=== PATIENT | male | born 1970 | race Two or more races ===

== ENCOUNTER 2017-06-21 14:29 | Inpatient (IN) | payer OTHER ==
[2017-06-21 14:57] VITALS: BMI 19.9
[2017-06-21] MEDS ORDERED: P-EPHED 60MG/TRIPROLIDI 2.5MG TABLET PO PRN (15:48)
[2017-06-21] MEDS ORDERED: LOPERAMIDE HCL 2 MG CAPSULE PO PRN (15:48)
[2017-06-21] MEDS ORDERED: MAG HYDROX/AL HYDROX/SIMETH 30 ML UNIT-DOSE CUP PO PRN (15:48)
[2017-06-21] MEDS ORDERED: chlordiazePOXIDE HCL 25 MG CAPSULE PO PRN (15:48)
[2017-06-21] MEDS ORDERED: ACETAMINOPHEN 325 MG TABLET (FP) PO PRN (15:48)
[2017-06-21] MEDS ORDERED: MAGNESIUM CITRATE 300 ML BOTTLE PO PRN (15:48)
[2017-06-21] MEDS ORDERED: hydrOXYzine PAMOATE 50 MG CAPSULE (FP) PO PRN (15:48)
[2017-06-21] MEDS ORDERED: guaiFENesin/D-METHORPHAN HB 10 ML UNIT-DOSE CUPS PO PRN (15:48)
[2017-06-21] MEDS ORDERED: chlordiazePOXIDE HCL 25 MG CAPSULE PO ONE (15:48)
[2017-06-21] MEDS ORDERED: NICOTINE POLACRILEX 2 MG GUM BC PRN (15:48)
[2017-06-21] MEDS ORDERED: MAGNESIUM HYDROX 2400MG/30ML ORAL SUSPENSION 30 ML CUP PO PRN (15:48)
[2017-06-21] MEDS ORDERED: IBUPROFEN 400 MG TABLET (FP) PO PRN (15:48)
[2017-06-21] MEDS ORDERED: MENTHOL/PHENOL 1 EACH UD MM PRN (15:48)
--- NOTE | 2017-06-21 15:57 | HP ---
CIWA Score - CIWA Score Nausea/Vomitin-Mild Nausea/No Vomiting Muscle Tremors: 3 Anxiety: 4-Mod. Anxious/Guarded Agitation: 4-Moderately Restless Paroxysmal Sweats: 3 Orientation: 0-Oriented Tacttile Disturbances: 1-Very Mild Itch/Numbness Auditory Disturbances: 0-None Visual Disturbances: 0-None Headache: 0-None Present CIWA-Ar Total Score: 16 Admission ROS BHS - HPI Chief Complaint: Withdrawal sx. Allergies/Adverse Reactions: Allergies Allergy/AdvReac Type Severity Reaction Status Date / Time No Known Allergies Allergy Verified 06/21/17 15:47 History of Present Illness: 46 y/o man with a long hx. of alcoholism is admitted for detox. Pt. was here in October 2016, denies significant sobriety. Exam Limitations: No Limitations - Ebola screening Have you traveled outside of the country in the last 21 days: No Have you had contact with anyone from an Ebola affected area: No Have you been sick,other than usual withdrawal symptoms: No Do you have a fever: No - Review of Systems Constitutional: Diaphoresis EENT: reports: No Symptoms Reported Respiratory: reports: No Symptoms reported Cardiac: reports: No Symptoms Reported GI: reports: Nausea, Abdominal cramping : reports: No Symptoms Reported Musculoskeletal: reports: Back Pain Integumentary: reports: Sweating Neuro: reports: Tingling, Tremors, Other (Dysarthria) Endocrine: reports: No Symptoms Reported Hematology: reports: No Symptoms Reported Psychiatric: reports: No Sypmtoms Reported Other Systems: Reviewed and Negative Patient History - Patient Medical History Hx Anemia: No Hx Asthma: No Hx Chronic Obstructive Pulmonary Disease (COPD): No Hx Cancer: No Hx Cardiac Disorders: No Hx Congestive Heart Failure: No Hx Hypertension: No Hx Hypercholesterolemia: No Hx Pacemaker: No HX Cerebrovascular Accident: No Hx Seizures: No Hx Dementia: No Hx Diabetes: No Hx Gastrointestinal Disorders: No Hx Genitourinary Disorders: No Hx Sexually Transmitted Disorders: No Hx Renal Disease (ESRD): No Hx Thyroid Disease: No Hx Human Immunodeficiency Virus (HIV): No Hx Hepatitis C: No Hx Depression: Yes Hx Suicide Attempt: No Hx Bipolar Disorder: No Hx Schizophrenia: Yes - Patient Surgical History Past Surgical History: No Hx Neurologic Surgery: No Hx Cataract Extraction: No Hx Cardiac Surgery: No Hx Lung Surgery: No Hx Breast Surgery: No Hx Breast Biopsy: No Hx Abdominal Surgery: No Hx Appendectomy: No Hx Cholecystectomy: No Hx Genitourinary Surgery: No Hx Orthopedic Surgery: No Anesthesia Reaction: No - PPD History Previous Implant?: Yes Documented Results: Negative w/proof Implanted On Prior [facility] Admission?: Yes Date: 10/22/16 Results: 0 mm PPD to be Administered?: No - Smoking Cessation Smoking history: Current every day smoker Have you smoked in the past 12 months: Yes Aproximately how many cigarettes per day: 20 Cigars Per Day: 0 Hx Chewing Tobacco Use: No Initiated information on smoking cessation: Yes 'Breaking Loose' booklet given: 06/21/17 - Substance & Tx. History Hx Alcohol Use: Yes Hx Substance Use: Yes Substance Use Type: Alcohol, Cocaine Hx Substance Use Treatment: Yes (Detox at [facility] in 10/2016) - Substances Abused Alcohol Route: Oral Frequency: Daily Amount used: beer(6- 24 oz bottles) or 2(6packs) Age of first use: 20 Date of Last Use: 06/18/17 Crack Route: Smoking Frequency: Daily Amount used: $150 Age of first use: 16 Date of Last Use: 06/20/17 Family Disease History - Family Disease History Family Disease History: Other: Father (.), Mother (.), Brother ( Psychiatric issues.) Admission Physical Exam [facility] - Vital Signs Vital Signs: Vital Signs - 24 hr 06/21/17 14:55 Temperature 97.9 F Pulse Rate 83 Respiratory 18 Rate Blood Pressure 138/75 - Physical General Appearance: Yes: Tremorous, Irritable, Sweating, Anxious HEENTM: Yes: Within Normal Limits Respiratory: Yes: Chest Non-Tender, Lungs Clear, Normal Breath Sounds Neck: Yes: Supple Breast: Yes: Breast Exam Deferred Cardiology: Yes: Regular Rhythm, Regular Rate, S1, S2 Abdominal: Yes: Normal Bowel Sounds, Non Tender, Flat, Soft Genitourinary: Yes: Within Normal Limits Back: Yes: Within Normal Limits Musculoskeletal: Yes: Within Normal Limits Extremities: Yes: Tremors Neurological: Yes: Fully Oriented, Alert, Facial Droop (left facial palsy), Other (Dysarthria) Integumentary: Yes: Diaphoresis Lymphatic: Yes: Within Normal Limits - Diagnostic (1) Cocaine dependence, uncomplicated Current Visit: Yes Status: Acute (2) Alcohol dependence with uncomplicated withdrawal Current Visit: Yes Status: Chronic (3) Facial paralysis on left side Current Visit: Yes Status: Chronic (4) Nicotine dependence Current Visit: Yes Status: Chronic Qualifiers: Nicotine product type: cigarettes Substance use status: uncomplicated Qualified Code(s): F17.210 - Nicotine dependence, cigarettes, uncomplicated (5) Sedative, hypnotic or anxiolytic dependence with withdrawal, uncomplicated Current Visit: Yes Status: Chronic Cleared for Admission [facility] - Detox or Rehab [facility] Level of Care: Medically Managed Detox Regimen/Protocol: Librium [facility] Breath Alcohol Content Breath Alcohol Content: 0 Urine Drug Screen - Results Drug Screen Negative: No Urine Drug Screen Results: NINA-Cocaine
[2017-06-21] MEDS: chlordiazePOXIDE HCL 25 MG CAPSULE PO SCH ×2 (18:10→22:27)
[2017-06-21] MEDS: NICOTINE 21 MG/24 HOURS TOPICAL PATCH TD SCH (18:12)
[2017-06-21] MEDS: THIAMINE HCL 100 MG TABLET (FP) PO SCH (22:27)
[2017-06-22 00:11] LABS: URINE APPEARANCE SLCLOUDY; URINE BILIRUBIN NEGATIVE (NEGATIVE); URINE BLOOD NEGATIVE (NEGATIVE); URINE COLOR LTYELLOW; URINE GLUCOSE (UA) NEGATIVE (NEGATIVE); URINE KETONE NEGATIVE (NEGATIVE); URINE LEUK ESTERASE NEGATIVE (NEGATIVE); URINE NITRITE NEGATIVE (NEGATIVE); URINE PROTEIN NEGATIVE (NEGATIVE); URINE UROBILINOGEN NEGATIVE mg/dL (0.2-1.0)
[2017-06-22] MEDS: chlordiazePOXIDE HCL 25 MG CAPSULE PO SCH ×4 (05:25→22:27)
--- NOTE | 2017-06-22 09:03 | EKG ---
Test Reason : Blood Pressure : / mmHG Vent. Rate : 062 BPM Atrial Rate : 062 BPM P-R Int : 110 ms QRS Dur : 090 ms QT Int : 410 ms P-R-T Axes : 072 078 059 degrees QTc Int : 416 ms SINUS RHYTHM WITH SHORT SD OTHERWISE NORMAL ECG WHEN COMPARED WITH ECG OF 20-OCT-2016 14:47, NO SIGNIFICANT CHANGE WAS FOUND Confirmed by BUSTER YUAN MD ([id number]) on 06/22/2017 9:02:56 AM Referred By: Confirmed By:BUSTER YUAN MD
--- NOTE | 2017-06-22 09:09 | CONSULT ---
[facility] Psychiatric Consult - Data Date of interview: 06/22/17 Admission source: [facility] Identifying data: Mr Anderson is a 46 years old single male, father of 3 children, unemployedon SSI, living in a room Substance Abuse History: Reports history of alcohol and cocaine use. Refer to addiction counselor's note for further information Medical History: Unremarkable except for facial paralysis on left side. Smokes cigarettes 1ppd Psychiatric History: Reports that he was diagnosed with Schizophrenia and depression in 2003. Reports multiple previous admissions to several institutions including [facility], hospital in [place] and most recently a few months ago to [facility]. Reports receiving OPD care at a clinic in the [place] and he is prescribed Xanax 1 mg o BID, Depakote 500 mg po BID, Doxepin 50 mg po HS, Risperdal 2 mg po BID and Ambien 10 mg po HS. 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 Denies history of suicidal attempt. At [facility], reports feeling depressed and anxious and sleeping poorly Physical/Sexual Abuse/Trauma History: Denies history of verbal, physical or sexual abuse as well as DV relationship Additional Comment: Reports history of multiple previous misdemeanor arrests. Denies being on probation currently Mental Status Exam - Mental Status Exam Alert and Oriented to: Time, Place, Person Cognitive Function: Fair Patient Appearance: Well Groomed Mood: Depressed, Anxious Affect: Appropriate Patient Behavior: Cooperative Speech Pattern: Clear (speech difficulty due to facial paralysis on left side) Voice Loudness: Normal Thought Process: Intact, Goal Oriented Hallucinations: Denies Suicidal Ideation: Denies Homicidal Ideation: Denies Insight/Judgement: Fair Sleep: Poorly Appetite: Good Muscle strength/Tone: Normal Gait/Station: Normal Psychiatric Findings - Problem List ([place] 1, 2,3) (1) Schizoaffective disorder Current Visit: Yes Status: Chronic (2) Substance induced mood disorder Current Visit: Yes Status: Acute (3) Substance-induced sleep disorder Current Visit: Yes Status: Acute (4) Alcohol dependence with uncomplicated withdrawal Current Visit: Yes Status: Acute (5) Cocaine dependence, uncomplicated Current Visit: Yes Status: Acute (6) Nicotine dependence Current Visit: Yes Status: Chronic Qualifiers: Nicotine product type: cigarettes Substance use status: uncomplicated Qualified Code(s): F17.210 - Nicotine dependence, cigarettes, uncomplicated (7) Facial paralysis on left side Current Visit: Yes Status: Chronic - Initial Treatment Plan Initial Treatment Plan: 1) Resume Depakote 500 mg po BID, Risperdal 2 mg po BID , Doxepin 50 mg po HS and Ambien 10 mg po HS prn for insomnia. 2) Continue inpatient detoxification
[2017-06-22 10:06] LABS: ALBUMIN 3.5 g/dl (3.4-5.0); ANION GAP 5 (8-16); CALCIUM 8.4 mg/dL (8.5-10.1); CO2 30 mmol/L (21-32); CREATININE 0.9 mg/dL (0.7-1.3); GLUCOSE,RANDOM 73 mg/dL (74-106); SGOT/AST 12 U/L (15-37); SGPT/ALT 22 U/L (12-78)
[2017-06-22 10:07] LABS: ALK PHOS 66 U/L (45-117); BILIRUBIN,TOTAL 0.3 mg/dL (0.2-1.0); TOT PROT 5.9 g/dl (6.4-8.2)
[2017-06-22 10:21] LABS: MCH 30.1 pg (25.7-33.7); MCHC 32.9 g/dl (32.0-35.9); MEAN CELL VOLUME 91.5 fl (80-96); MEAN PLT VOLUME 7.9 fl (7.5-11.1); PLATELET COUNT 303 K/MM3 (134-434); RDW 14.5 % (11.9-15.9)
[2017-06-22] MEDS: PRENATAL VITAMINS W/ FOLIC ACID TABLET (FP) PO SCH (10:47)
[2017-06-22] MEDS: NICOTINE 21 MG/24 HOURS TOPICAL PATCH TD SCH (10:48)
[2017-06-22] MEDS: risperiDONE 2 MG TABLET PO SCH ×2 (10:50→22:27)
[2017-06-22] MEDS: DIVALPROEX SODIUM 500 MG TABLET E.C. PO SCH ×2 (10:50→22:27)
[2017-06-22 11:18] LABS: HIV 1 & 2 AB NEGATIVE; HIV 1 AGp24 NEGATIVE
[2017-06-22 13:29] LABS: URINE LEUK ESTERASE NEGATIVE (NEGATIVE)
--- NOTE | 2017-06-22 13:46 | PN ---
S CIWA - CIWA Score Nausea/Vomitin-Int. Nausea w/Dry Heave Muscle Tremors: 3 Anxiety: 4-Mod. Anxious/Guarded Agitation: 4-Moderately Restless Paroxysmal Sweats: 3 Orientation: 0-Oriented Tacttile Disturbances: 1-Very Mild Itch/Numbness Auditory Disturbances: 0-None Visual Disturbances: 0-None Headache: 3-Moderate CIWA-Ar Total Score: 22 BHS Progress Note (SOAP) Subjective: Nausea, sweating, interrupted sleep, headache Objective: 06/22/17 13:44 Last Vital Signs Temp Pulse Resp BP Pulse Ox 97.8 F 80 18 120/76 06/22/17 10:37 06/22/17 10:37 06/22/17 10:37 06/22/17 10:37 Laboratory Tests 06/21/17 06/22/17 06/22/17 14:30 08:00 08:00 WBC 5.0 RBC 4.47 Hgb 13.4 Hct 40.9 MCV 91.5 MCH 30.1 MCHC 32.9 RDW 14.5 Plt Count 303 MPV 7.9 Sodium 141 Potassium 4.7 Chloride 106 Carbon Dioxide 30 Anion Gap 5 L BUN 13 D Creatinine 0.9 Creat Clearance w eGFR > 60 Random Glucose 73 L Calcium 8.4 L Total Bilirubin 0.3 AST 12 L D ALT 22 Alkaline Phosphatase 66 Total Protein 5.9 L Albumin 3.5 Urine Color Ltyellow Urine Appearance Slcloudy Urine pH 8.0 D Ur Specific [place] 1.011 Urine Protein Negative Urine Glucose (UA) Negative Urine Ketones Negative Urine Blood Negative Urine Nitrite Negative Urine Bilirubin Negative Urine Urobilinogen Negative Ur Leukocyte Esterase Negative RPR Titer HIV 1&2 Antibody Screen HIV P24 Antigen 06/22/17 06/22/17 08:00 08:00 WBC RBC Hgb Hct MCV MCH MCHC RDW Plt Count MPV Sodium Potassium Chloride Carbon Dioxide Anion Gap BUN Creatinine Creat Clearance w eGFR Random Glucose Calcium Total Bilirubin AST ALT Alkaline Phosphatase Total Protein Albumin Urine Color Urine Appearance Urine pH Ur Specific [place] Urine Protein Urine Glucose (UA) Urine Ketones Urine Blood Urine Nitrite Urine Bilirubin Urine Urobilinogen Ur Leukocyte Esterase RPR Titer Nonreactive HIV 1&2 Antibody Screen Negative HIV P24 Antigen Negative Labs noted Assessment: 06/22/17 13:45 Withdrawal symptoms Plan: Continue detox
[2017-06-22] MEDS: DOXEPIN HCL 50 MG CAPSULE PO SCH (22:27)
[2017-06-22] MEDS: THIAMINE HCL 100 MG TABLET (FP) PO SCH (22:27)
[2017-06-23] MEDS: chlordiazePOXIDE HCL 25 MG CAPSULE PO SCH ×2 (05:22→10:23)
[2017-06-23] MEDS: NICOTINE 21 MG/24 HOURS TOPICAL PATCH TD SCH (10:22)
[2017-06-23] MEDS: PRENATAL VITAMINS W/ FOLIC ACID TABLET (FP) PO SCH (10:22)
[2017-06-23] MEDS: DIVALPROEX SODIUM 500 MG TABLET E.C. PO SCH ×2 (10:22→22:26)
[2017-06-23] MEDS: risperiDONE 2 MG TABLET PO SCH ×2 (10:22→22:26)
--- NOTE | 2017-06-23 12:22 | PN ---
S CIWA - CIWA Score Nausea/Vomitin Muscle Tremors: 3 Anxiety: 4-Mod. Anxious/Guarded Agitation: 2 Paroxysmal Sweats: No Perspiration Orientation: 2-Disoriented Date<2 days Tacttile Disturbances: 0-None Auditory Disturbances: 0-None Visual Disturbances: 0-None Headache: 4-Moderately Severe CIWA-Ar Total Score: 18 BHS Progress Note (SOAP) Subjective: Nausea, Fatigue, H/A, Sweating, Tremors. Objective: PT. A & O X 2 (UNCERTAIN ABOUT DAY / DATE). NO ACUTE DISTRESS. 06/23/17 12:20 Vital Signs Temperature 95.9 F L 06/23/17 09:23 Pulse Rate 108 H 06/23/17 09:23 Respiratory Rate 18 06/23/17 09:23 Blood Pressure 120/81 06/23/17 09:23 O2 Sat by Pulse Oximetry (%) Laboratory Tests 06/21/17 06/22/17 06/22/17 14:30 08:00 08:00 WBC 5.0 RBC 4.47 Hgb 13.4 Hct 40.9 MCV 91.5 MCH 30.1 MCHC 32.9 RDW 14.5 Plt Count 303 MPV 7.9 Sodium 141 Potassium 4.7 Chloride 106 Carbon Dioxide 30 Anion Gap 5 L BUN 13 D Creatinine 0.9 Creat Clearance w eGFR > 60 Random Glucose 73 L Calcium 8.4 L Total Bilirubin 0.3 AST 12 L D ALT 22 Alkaline Phosphatase 66 Total Protein 5.9 L Albumin 3.5 Urine Color Ltyellow Urine Appearance Slcloudy Urine pH 8.0 D Ur Specific [place] 1.011 Urine Protein Negative Urine Glucose (UA) Negative Urine Ketones Negative Urine Blood Negative Urine Nitrite Negative Urine Bilirubin Negative Urine Urobilinogen Negative Ur Leukocyte Esterase Negative RPR Titer HIV 1&2 Antibody Screen HIV P24 Antigen 06/22/17 06/22/17 08:00 08:00 WBC RBC Hgb Hct MCV MCH MCHC RDW Plt Count MPV Sodium Potassium Chloride Carbon Dioxide Anion Gap BUN Creatinine Creat Clearance w eGFR Random Glucose Calcium Total Bilirubin AST ALT Alkaline Phosphatase Total Protein Albumin Urine Color Urine Appearance Urine pH Ur Specific [place] Urine Protein Urine Glucose (UA) Urine Ketones Urine Blood Urine Nitrite Urine Bilirubin Urine Urobilinogen Ur Leukocyte Esterase RPR Titer Nonreactive HIV 1&2 Antibody Screen Negative HIV P24 Antigen Negative LABS NOTED. Assessment: 06/23/17 12:21 WITHDRAWAL SYMPTOMS. Plan: CONTINUE DETOX.
[2017-06-23] MEDS: chlordiazePOXIDE 5 MG CAPSULE PO SCH ×2 (17:31→22:26)
[2017-06-23] MEDS: DOXEPIN HCL 50 MG CAPSULE PO SCH (22:26)
[2017-06-23] MEDS: THIAMINE HCL 100 MG TABLET (FP) PO SCH (22:26)
[2017-06-23] MEDS: ZOLPIDEM TARTRATE 5 MG TABLET PO PRN (22:27)
[2017-06-24] MEDS: chlordiazePOXIDE 5 MG CAPSULE PO SCH ×2 (05:28→10:22)
--- NOTE | 2017-06-24 09:21 | PN ---
BHS Progress Note (SOAP) Subjective: headache sweating tremor Objective: 06/24/17 09:20 Vital Signs Temperature 96.2 F L 06/24/17 09:15 Pulse Rate 146 H 06/24/17 09:15 Respiratory Rate 18 06/24/17 09:15 Blood Pressure 110/74 06/24/17 09:15 O2 Sat by Pulse Oximetry (%) Laboratory Last Values WBC 5.0 K/mm3 (4.0-10.0) 06/22/17 08:00 RBC 4.47 M/mm3 (4.00-5.60) 06/22/17 08:00 Hgb 13.4 GM/dL (11.7-16.9) 06/22/17 08:00 Hct 40.9 % (35.4-49) 06/22/17 08:00 MCV 91.5 fl (80-96) 06/22/17 08:00 MCH 30.1 pg (25.7-33.7) 06/22/17 08:00 MCHC 32.9 g/dl (32.0-35.9) 06/22/17 08:00 RDW 14.5 % (11.9-15.9) 06/22/17 08:00 Plt Count 303 K/MM3 (134-434) 06/22/17 08:00 MPV 7.9 fl (7.5-11.1) 06/22/17 08:00 Sodium 141 mmol/L (136-145) 06/22/17 08:00 Potassium 4.7 mmol/L (3.5-5.1) 06/22/17 08:00 Chloride 106 mmol/L (98-107) 06/22/17 08:00 Carbon Dioxide 30 mmol/L (21-32) 06/22/17 08:00 Anion Gap 5 (8-16) L 06/22/17 08:00 BUN 13 mg/dL (7-18) D 06/22/17 08:00 Creatinine 0.9 mg/dL (0.7-1.3) 06/22/17 08:00 Creat Clearance w eGFR > 60 (>60) 06/22/17 08:00 Random Glucose 73 mg/dL (74-106) L 06/22/17 08:00 Calcium 8.4 mg/dL (8.5-10.1) L 06/22/17 08:00 Total Bilirubin 0.3 mg/dL (0.2-1.0) 06/22/17 08:00 AST 12 U/L (15-37) L D 06/22/17 08:00 ALT 22 U/L (12-78) 06/22/17 08:00 Alkaline Phosphatase 66 U/L (45-117) 06/22/17 08:00 Total Protein 5.9 g/dl (6.4-8.2) L 06/22/17 08:00 Albumin 3.5 g/dl (3.4-5.0) 06/22/17 08:00 Urine Color Ltyellow 06/21/17 14:30 Urine Appearance Slcloudy 06/21/17 14:30 Urine pH 8.0 (5.0-8.0) D 06/21/17 14:30 Ur Specific [place] 1.011 (1.001-1.035) 06/21/17 14:30 Urine Protein Negative (NEGATIVE) 06/21/17 14:30 Urine Glucose (UA) Negative (NEGATIVE) 06/21/17 14:30 Urine Ketones Negative (NEGATIVE) 06/21/17 14:30 Urine Blood Negative (NEGATIVE) 06/21/17 14:30 Urine Nitrite Negative (NEGATIVE) 06/21/17 14:30 Urine Bilirubin Negative (NEGATIVE) 06/21/17 14:30 Urine Urobilinogen Negative mg/dL (0.2-1.0) 06/21/17 14:30 Ur Leukocyte Esterase Negative (NEGATIVE) 06/21/17 14:30 RPR Titer Nonreactive (NONREACTIVE) 06/22/17 08:00 HIV 1&2 Antibody Screen Negative 06/22/17 08:00 HIV P24 Antigen Negative 06/22/17 08:00 lab noted Assessment: 06/24/17 09:20 mild withdrawal sx Plan: observation with detox regimen
[2017-06-24] MEDS: DIVALPROEX SODIUM 500 MG TABLET E.C. PO SCH ×2 (10:21→22:26)
[2017-06-24] MEDS: risperiDONE 2 MG TABLET PO SCH ×2 (10:21→22:26)
[2017-06-24] MEDS: PRENATAL VITAMINS W/ FOLIC ACID TABLET (FP) PO SCH (10:22)
[2017-06-24] MEDS: NICOTINE 21 MG/24 HOURS TOPICAL PATCH TD SCH (10:22)
[2017-06-24] MEDS: chlordiazePOXIDE HCL 10 MG CAPSULE PO SCH ×2 (17:43→22:26)
[2017-06-24] MEDS: THIAMINE HCL 100 MG TABLET (FP) PO SCH (22:26)
[2017-06-24] MEDS: DOXEPIN HCL 50 MG CAPSULE PO SCH (22:26)
[2017-06-24] MEDS: ZOLPIDEM TARTRATE 5 MG TABLET PO PRN (22:26)
[2017-06-25] MEDS: chlordiazePOXIDE HCL 10 MG CAPSULE PO SCH ×2 (06:06→10:53)
[2017-06-25 09:53] VITALS: BP 113/74; PULSE 109; TEMP 97.1
[2017-06-25] MEDS: NICOTINE 21 MG/24 HOURS TOPICAL PATCH TD SCH (10:53)
[2017-06-25] MEDS: PRENATAL VITAMINS W/ FOLIC ACID TABLET (FP) PO SCH (10:53)
[2017-06-25] MEDS: risperiDONE 2 MG TABLET PO SCH (10:53)
[2017-06-25] MEDS: DIVALPROEX SODIUM 500 MG TABLET E.C. PO SCH (10:53)
--- NOTE | 2017-06-25 11:38 | DS ---
[facility] Detox Discharge Summary Admission Date: 06/21/17 Discharge Date: 06/25/17 - History Present History: Alcohol Dependence Pertinent Past History: S/P LEFT EYE INJURY S/P FACIAL PARALYSIS LEFT SIDE - Physical Exam Results Vital Signs: Vital Signs Temperature 97.1 F L 06/25/17 09:52 Pulse Rate 109 H 06/25/17 09:52 Respiratory Rate 16 06/25/17 09:52 Blood Pressure 113/74 06/25/17 09:52 O2 Sat by Pulse Oximetry (%) Pertinent Admission Physical Exam Findings: WITHDRAWAL SX Laboratory Last Values WBC 5.0 K/mm3 (4.0-10.0) 06/22/17 08:00 RBC 4.47 M/mm3 (4.00-5.60) 06/22/17 08:00 Hgb 13.4 GM/dL (11.7-16.9) 06/22/17 08:00 Hct 40.9 % (35.4-49) 06/22/17 08:00 MCV 91.5 fl (80-96) 06/22/17 08:00 MCH 30.1 pg (25.7-33.7) 06/22/17 08:00 MCHC 32.9 g/dl (32.0-35.9) 06/22/17 08:00 RDW 14.5 % (11.9-15.9) 06/22/17 08:00 Plt Count 303 K/MM3 (134-434) 06/22/17 08:00 MPV 7.9 fl (7.5-11.1) 06/22/17 08:00 Sodium 141 mmol/L (136-145) 06/22/17 08:00 Potassium 4.7 mmol/L (3.5-5.1) 06/22/17 08:00 Chloride 106 mmol/L (98-107) 06/22/17 08:00 Carbon Dioxide 30 mmol/L (21-32) 06/22/17 08:00 Anion Gap 5 (8-16) L 06/22/17 08:00 BUN 13 mg/dL (7-18) D 06/22/17 08:00 Creatinine 0.9 mg/dL (0.7-1.3) 06/22/17 08:00 Creat Clearance w eGFR > 60 (>60) 06/22/17 08:00 Random Glucose 73 mg/dL (74-106) L 06/22/17 08:00 Calcium 8.4 mg/dL (8.5-10.1) L 06/22/17 08:00 Total Bilirubin 0.3 mg/dL (0.2-1.0) 06/22/17 08:00 AST 12 U/L (15-37) L D 06/22/17 08:00 ALT 22 U/L (12-78) 06/22/17 08:00 Alkaline Phosphatase 66 U/L (45-117) 06/22/17 08:00 Total Protein 5.9 g/dl (6.4-8.2) L 06/22/17 08:00 Albumin 3.5 g/dl (3.4-5.0) 06/22/17 08:00 Urine Color Ltyellow 06/21/17 14:30 Urine Appearance Slcloudy 06/21/17 14:30 Urine pH 8.0 (5.0-8.0) D 06/21/17 14:30 Ur Specific [place] 1.011 (1.001-1.035) 06/21/17 14:30 Urine Protein Negative (NEGATIVE) 06/21/17 14:30 Urine Glucose (UA) Negative (NEGATIVE) 06/21/17 14:30 Urine Ketones Negative (NEGATIVE) 06/21/17 14:30 Urine Blood Negative (NEGATIVE) 06/21/17 14:30 Urine Nitrite Negative (NEGATIVE) 06/21/17 14:30 Urine Bilirubin Negative (NEGATIVE) 06/21/17 14:30 Urine Urobilinogen Negative mg/dL (0.2-1.0) 06/21/17 14:30 Ur Leukocyte Esterase Negative (NEGATIVE) 06/21/17 14:30 RPR Titer Nonreactive (NONREACTIVE) 06/22/17 08:00 HIV 1&2 Antibody Screen Negative 06/22/17 08:00 HIV P24 Antigen Negative 06/22/17 08:00 - Treatment Hospital Course: Detox Protocol Followed, Detoxed Safely, Responded well, Discharged Condition Good, Rehab Referral Accepted Patient has Accepted a Rehab Referral to: [facility] - Medication Discharge Medications: Ambulatory Orders Doxepin HCl 50 mg PO HS 10/20/16 Gabapentin 400 mg PO DAILY 10/20/16 Alprazolam [Xanax] 1 mg PO Q12H 06/21/17 Zolpidem Tartrate [Ambien] 10 mg PO HS 06/21/17 Divalproex [Depakote -] 500 mg PO BID #60 tablet.ec 06/22/17 Doxepin HCl [[place] -] 50 mg PO HS #30 capsule 06/22/17 Risperidone [Risperdal] 2 mg PO BID #60 tablet 06/22/17 - Diagnosis (1) Alcohol dependence with uncomplicated withdrawal Current Visit: Yes Status: Acute (2) Cocaine dependence, uncomplicated Current Visit: Yes Status: Acute (3) Nicotine dependence Current Visit: Yes Status: Acute Qualifiers: Nicotine product type: cigarettes Substance use status: in withdrawal Qualified Code(s): F17.213 - Nicotine dependence, cigarettes, with withdrawal (4) Facial paralysis on left side Current Visit: Yes Status: Chronic - AMA Did Patient Leave Against Medical Advice: No
== END 2017-06-25 13:45 | disposition other institution (70) | DRG 774 ==
LOC: YASAS 14:29 → Y3N 17:25
PROVIDERS: ADMIT Internal Medicine; ATTEND Internal Medicine
PROC: HZ2ZZZZ Detoxification Services for Substance Abuse Treatment (ICD-10-PCS; principal; 2017-06-21)
DX: F13.230 Sedative, hypnotic or anxiolytic dependence with withdrawal, uncomplicated (principal); F10.230 Alcohol dependence with withdrawal, uncomplicated; F14.20 Cocaine dependence, uncomplicated; F17.213 Nicotine dependence, cigarettes, with withdrawal; F19.24 Other psychoactive substance dependence with psychoactive substance-induced mood disorder; F19.282 Other psychoactive substance dependence with psychoactive substance-induced sleep disorder; F25.9 Schizoaffective disorder, unspecified; G51.0 Bell's palsy
CPT/HCPCS: 36415; 80053; 81003; 85027; 86593; 87389; 93005; 93010

== ENCOUNTER 2017-06-25 13:56 | Inpatient (IN) | payer OTHER ==
[2017-06-25] MEDS ORDERED: MAG HYDROX/AL HYDROX/SIMETH 30 ML UNIT-DOSE CUP PO PRN (16:28)
[2017-06-25] MEDS ORDERED: NICOTINE 14 MG/24 HOURS TOPICAL PATCH TD PRN (16:28)
[2017-06-25] MEDS ORDERED: MAGNESIUM HYDROX 2400MG/30ML ORAL SUSPENSION 30 ML CUP PO PRN (16:28)
[2017-06-25] MEDS ORDERED: P-EPHED 60MG/TRIPROLIDI 2.5MG TABLET PO PRN (16:28)
[2017-06-25] MEDS ORDERED: NICOTINE POLACRILEX 4 MG GUM BUC PRN (16:28)
[2017-06-25] MEDS ORDERED: guaiFENesin/D-METHORPHAN HB 10 ML UNIT-DOSE CUPS PO PRN (16:28)
[2017-06-25] MEDS ORDERED: MENTHOL/PHENOL 1 EACH UD MM PRN (16:28)
[2017-06-25] MEDS ORDERED: LOPERAMIDE HCL 2 MG CAPSULE PO PRN (16:28)
[2017-06-25] MEDS ORDERED: MAGNESIUM CITRATE 300 ML BOTTLE PO PRN (16:28)
[2017-06-25] MEDS ORDERED: IBUPROFEN 400 MG TABLET (FP) PO PRN (16:28)
--- NOTE | 2017-06-25 16:28 | HP ---
[facility] Rehab Assess/Revision - Admission History Admitted to Rehab from: [facility] Date of Admission to Rehab: 06/25/17 - Vital signs Vital Signs: Vital Signs Period Temp Pulse Resp BP Sys/Sosa Pulse Ox Last 24 Hr 98.2 F 110 18 124/75 - Findings Detox History & Physical reviewed: Yes Concur with findings: Yes Comments/Additional Findings: transferred from detox to rehab admission as per protocol Inpatient Rehab Admission - Initial Determination Are CD services needed?: Yes Free of communicable disease: Yes Not in need of hospitalization: Yes - Rehab Admission Criteria Previous failed treatment: Yes Poor recovery environment: Yes Comorbidities: Yes Lacks judgement: No Patient is meeting Inpatient Rehab admission criteria:: Yes
[2017-06-25] MEDS: THIAMINE HCL 100 MG TABLET (FP) PO SCH (21:14)
[2017-06-25] MEDS: DIVALPROEX SODIUM 500 MG TABLET E.C. PO SCH (21:14)
[2017-06-25] MEDS: risperiDONE 2 MG TABLET PO SCH (21:14)
[2017-06-25] MEDS: DOXEPIN HCL 50 MG CAPSULE PO SCH (22:30)
[2017-06-26] MEDS: risperiDONE 2 MG TABLET PO SCH ×2 (09:49→21:24)
[2017-06-26] MEDS: PRENATAL VITAMINS W/ FOLIC ACID TABLET (FP) PO SCH (09:49)
[2017-06-26] MEDS: DIVALPROEX SODIUM 500 MG TABLET E.C. PO SCH ×2 (09:49→21:24)
--- NOTE | 2017-06-26 11:25 | HP ---
Psychiatrist Admission - Data Date of interview: 06/26/17 Admission source: [facility]N Identifying data: [facility] for this 46 years old single male, father of 3 children, unemployed supported on SSI, living in a room. Medical History: Facial paralisis, smokes cigerettes 1PPD. Psychiatric History: Patient reports first psychiatric contact in 2003, he had a auditory and visual hallucinations and suicidal thoughts, reports voices were telling him to hurt slef was admitted to the hospital in [facility], he reports several 10 or 15 psychiatric hospitalizations including [facility], [facility] with most recent a month ago at [facility] for 2 weeks due to auditory hallucinations and pills overdose hallucinations. He following up at the [place] [facility] and was precsribed Depakote 500 mg po bid, Resperdal 2 mg po bid, Doxepin 50 mg po hs, Xanax 1 mg po bid, seen by Dr.Camille lagos in detox and continued medications. States was diagnosed with Schizophrenia, deepression and anxiety, reports he feels very anxious without his xanax. Physical/Sexual Abuse/Trauma History: He denies history of sexual, physical and verbal abuse. Vital Signs: Vital Signs - 24 hr 06/25/17 06/26/17 06/26/17 14:44 01:17 03:30 Temperature 98.2 F Pulse Rate 110 H Respiratory 18 16 16 Rate Blood Pressure 124/75 06/26/17 06:40 Temperature 97.0 F L Pulse Rate 90 Respiratory 16 Rate Blood Pressure 117/75 Allergies/Adverse Reactions: Allergies Allergy/AdvReac Type Severity Reaction Status Date / Time No Known Allergies Allergy Verified 06/25/17 15:03 Date of last physical exam: 06/21/17 Concur with the findings of this exam: Yes - Substance Abuse/Tx History Hx Alcohol Use: Yes (24oz beer 6 cans adily) Hx Substance Use: Yes Substance Use Type: Cocaine ($150 daily.), Tranquilizers (xanax prescribed ) Hx Substance Use Treatment: Yes ([facility]) Mental Status Exam - Mental Status Exam Alert and Oriented to: Time, Place, Person Cognitive Function: Good Patient Appearance: Well Groomed Mood: Hopeful Affect: Appropriate Patient Behavior: Appropriate, Cooperative Speech Pattern: Clear, Appropriate Voice Loudness: Normal Thought Process: Goal Oriented Thought Disorder: Not Present, Paranoid Ideation (on and of paranoid thoughts), Ideas of Reference (sometimes states he gets messages from TV, thinks people talking about him) Hallucinations: Denies, Auditory (heard voices last week,) Suicidal Ideation: Denies Homicidal Ideation: Denies Insight/Judgement: Fair Sleep: Fair Appetite: Fair Muscle strength/Tone: Normal Gait/Station: Normal Psychiatric Findings - Problem List ([place] 1, 2,3) (1) Sedative hypnotic or anxiolytic dependence Current Visit: Yes Status: Acute (2) Alcohol dependence Current Visit: Yes Status: Acute (3) Cocaine dependence Current Visit: Yes Status: Acute (4) Nicotine dependence Current Visit: No Status: Acute Qualifiers: Nicotine product type: cigarettes Substance use status: in withdrawal Qualified Code(s): F17.213 - Nicotine dependence, cigarettes, with withdrawal (5) Facial paralysis on left side Current Visit: No Status: Chronic (6) Schizoaffective disorder Current Visit: No Status: Chronic - Initial Treatment Plan Initial Treatment Plan: discussed indications and properties of Buspar and med. was recommended for anxiety, patient agreed to start, will add Buspar and continue his current medications, monitor progress as needed.
[2017-06-26] MEDS: busPIRone HCL 5 MG TABLET PO SCH ×2 (13:29→21:24)
[2017-06-26] MEDS: THIAMINE HCL 100 MG TABLET (FP) PO SCH (21:24)
[2017-06-26] MEDS: DOXEPIN HCL 50 MG CAPSULE PO SCH (21:24)
[2017-06-27] MEDS: busPIRone HCL 5 MG TABLET PO SCH ×3 (06:39→21:25)
[2017-06-27] MEDS: PRENATAL VITAMINS W/ FOLIC ACID TABLET (FP) PO SCH (09:35)
[2017-06-27] MEDS: risperiDONE 2 MG TABLET PO SCH ×2 (09:35→21:25)
[2017-06-27] MEDS: DIVALPROEX SODIUM 500 MG TABLET E.C. PO SCH ×2 (09:35→21:25)
[2017-06-27] MEDS: DOXEPIN HCL 50 MG CAPSULE PO SCH (21:25)
[2017-06-27] MEDS: THIAMINE HCL 100 MG TABLET (FP) PO SCH (21:25)
[2017-06-28] MEDS: busPIRone HCL 5 MG TABLET PO SCH ×3 (06:13→21:11)
[2017-06-28] MEDS: PRENATAL VITAMINS W/ FOLIC ACID TABLET (FP) PO SCH (09:32)
[2017-06-28] MEDS: DIVALPROEX SODIUM 500 MG TABLET E.C. PO SCH ×2 (09:32→21:11)
[2017-06-28] MEDS: risperiDONE 2 MG TABLET PO SCH ×2 (09:32→21:11)
[2017-06-28] MEDS: THIAMINE HCL 100 MG TABLET (FP) PO SCH (21:11)
[2017-06-28] MEDS: DOXEPIN HCL 50 MG CAPSULE PO SCH (21:11)
[2017-06-29] MEDS: busPIRone HCL 5 MG TABLET PO SCH ×3 (06:20→21:10)
[2017-06-29] MEDS: DIVALPROEX SODIUM 500 MG TABLET E.C. PO SCH ×2 (09:38→21:09)
[2017-06-29] MEDS: PRENATAL VITAMINS W/ FOLIC ACID TABLET (FP) PO SCH (09:38)
[2017-06-29] MEDS: risperiDONE 2 MG TABLET PO SCH ×2 (09:39→21:09)
[2017-06-29] MEDS: THIAMINE HCL 100 MG TABLET (FP) PO SCH (21:09)
[2017-06-29] MEDS: DOXEPIN HCL 50 MG CAPSULE PO SCH (21:09)
[2017-06-30] MEDS: busPIRone HCL 5 MG TABLET PO SCH ×3 (06:11→21:11)
[2017-06-30] MEDS: PRENATAL VITAMINS W/ FOLIC ACID TABLET (FP) PO SCH (10:07)
[2017-06-30] MEDS: DIVALPROEX SODIUM 500 MG TABLET E.C. PO SCH ×2 (10:07→21:11)
[2017-06-30] MEDS: risperiDONE 2 MG TABLET PO SCH ×2 (10:07→21:11)
[2017-06-30] MEDS: THIAMINE HCL 100 MG TABLET (FP) PO SCH (21:11)
[2017-06-30] MEDS: DOXEPIN HCL 50 MG CAPSULE PO SCH (21:11)
[2017-06-30] MEDS: ACETAMINOPHEN 325 MG TABLET (FP) PO PRN (21:12)
[2017-07-01] MEDS: busPIRone HCL 5 MG TABLET PO SCH ×3 (06:23→21:02)
[2017-07-01] MEDS: PRENATAL VITAMINS W/ FOLIC ACID TABLET (FP) PO SCH (09:35)
[2017-07-01] MEDS: risperiDONE 2 MG TABLET PO SCH ×2 (09:36→21:02)
[2017-07-01] MEDS: DIVALPROEX SODIUM 500 MG TABLET E.C. PO SCH ×2 (09:36→21:02)
[2017-07-01] MEDS: DOXEPIN HCL 50 MG CAPSULE PO SCH (21:02)
[2017-07-01] MEDS: THIAMINE HCL 100 MG TABLET (FP) PO SCH (21:02)
[2017-07-02] MEDS: busPIRone HCL 5 MG TABLET PO SCH ×3 (06:22→21:08)
[2017-07-02] MEDS: risperiDONE 2 MG TABLET PO SCH ×2 (10:00→21:08)
[2017-07-02] MEDS: DIVALPROEX SODIUM 500 MG TABLET E.C. PO SCH ×2 (10:00→21:09)
[2017-07-02] MEDS: PRENATAL VITAMINS W/ FOLIC ACID TABLET (FP) PO SCH (10:00)
[2017-07-02] MEDS: DOXEPIN HCL 50 MG CAPSULE PO SCH (21:08)
[2017-07-02] MEDS: THIAMINE HCL 100 MG TABLET (FP) PO SCH (21:08)
[2017-07-02] MEDS: ACETAMINOPHEN 325 MG TABLET (FP) PO PRN (21:09)
[2017-07-03] MEDS: busPIRone HCL 5 MG TABLET PO SCH ×3 (06:23→21:30)
[2017-07-03] MEDS: risperiDONE 2 MG TABLET PO SCH ×2 (09:45→21:30)
[2017-07-03] MEDS: PRENATAL VITAMINS W/ FOLIC ACID TABLET (FP) PO SCH (09:45)
[2017-07-03] MEDS: DIVALPROEX SODIUM 500 MG TABLET E.C. PO SCH ×2 (09:45→21:30)
[2017-07-03] MEDS: THIAMINE HCL 100 MG TABLET (FP) PO SCH (21:30)
[2017-07-03] MEDS: DOXEPIN HCL 50 MG CAPSULE PO SCH (21:30)
[2017-07-04] MEDS: busPIRone HCL 5 MG TABLET PO SCH ×3 (06:13→21:13)
[2017-07-04] MEDS: risperiDONE 2 MG TABLET PO SCH ×2 (09:50→21:13)
[2017-07-04] MEDS: PRENATAL VITAMINS W/ FOLIC ACID TABLET (FP) PO SCH (09:50)
[2017-07-04] MEDS: DIVALPROEX SODIUM 500 MG TABLET E.C. PO SCH ×2 (09:50→21:14)
[2017-07-04] MEDS ORDERED: AMITRIPTYLINE HCL 25 MG TABLET (FP) PO PRN (16:58)
[2017-07-04] MEDS: hydrOXYzine PAMOATE 50 MG CAPSULE (FP) PO PRN (17:56)
[2017-07-04] MEDS: DOXEPIN HCL 50 MG CAPSULE PO SCH (21:13)
[2017-07-04] MEDS: THIAMINE HCL 100 MG TABLET (FP) PO SCH (21:13)
[2017-07-05] MEDS: busPIRone HCL 5 MG TABLET PO SCH ×3 (06:29→21:07)
[2017-07-05] MEDS: DIVALPROEX SODIUM 500 MG TABLET E.C. PO SCH ×2 (09:59→21:07)
[2017-07-05] MEDS: risperiDONE 2 MG TABLET PO SCH ×2 (10:00→21:07)
[2017-07-05] MEDS: PRENATAL VITAMINS W/ FOLIC ACID TABLET (FP) PO SCH (10:00)
[2017-07-05] MEDS: hydrOXYzine PAMOATE 50 MG CAPSULE (FP) PO PRN ×2 (14:43→21:07)
[2017-07-05] MEDS: THIAMINE HCL 100 MG TABLET (FP) PO SCH (21:07)
[2017-07-05] MEDS: DOXEPIN HCL 50 MG CAPSULE PO SCH (21:07)
[2017-07-06] MEDS: busPIRone HCL 5 MG TABLET PO SCH ×3 (06:50→21:06)
[2017-07-06] MEDS: risperiDONE 2 MG TABLET PO SCH ×2 (09:26→21:06)
[2017-07-06] MEDS: DIVALPROEX SODIUM 500 MG TABLET E.C. PO SCH ×2 (09:26→21:06)
[2017-07-06] MEDS: PRENATAL VITAMINS W/ FOLIC ACID TABLET (FP) PO SCH (09:26)
[2017-07-06] MEDS: hydrOXYzine PAMOATE 50 MG CAPSULE (FP) PO PRN ×2 (14:19→21:07)
[2017-07-06] MEDS: DOXEPIN HCL 50 MG CAPSULE PO SCH (21:06)
[2017-07-06] MEDS: THIAMINE HCL 100 MG TABLET (FP) PO SCH (21:06)
[2017-07-07] MEDS: busPIRone HCL 5 MG TABLET PO SCH ×3 (06:59→21:10)
[2017-07-07] MEDS: PRENATAL VITAMINS W/ FOLIC ACID TABLET (FP) PO SCH (10:04)
[2017-07-07] MEDS: DIVALPROEX SODIUM 500 MG TABLET E.C. PO SCH ×2 (10:04→21:10)
[2017-07-07] MEDS: risperiDONE 2 MG TABLET PO SCH ×2 (10:04→21:10)
[2017-07-07] MEDS: hydrOXYzine PAMOATE 50 MG CAPSULE (FP) PO PRN ×2 (14:06→21:11)
[2017-07-07] MEDS: DOXEPIN HCL 50 MG CAPSULE PO SCH (21:10)
[2017-07-07] MEDS: THIAMINE HCL 100 MG TABLET (FP) PO SCH (21:10)
[2017-07-08] MEDS: busPIRone HCL 5 MG TABLET PO SCH (06:21)
[2017-07-08 06:36] VITALS: BP 113/80; PULSE 86; TEMP 98
[2017-07-08] MEDS: DIVALPROEX SODIUM 500 MG TABLET E.C. PO SCH (09:53)
[2017-07-08] MEDS: risperiDONE 2 MG TABLET PO SCH (09:53)
[2017-07-08] MEDS: PRENATAL VITAMINS W/ FOLIC ACID TABLET (FP) PO SCH (09:53)
--- NOTE | 2017-07-08 10:17 | PN ---
Psychiatric Progress Note Vital Signs: Vital Signs Period Temp Pulse Resp BP Sys/Sosa Pulse Ox Last 24 Hr 98.0 F 86 16-18 113/80 Date of Session: 07/08/17 Chief Complaint:: discharge visit HPI: Patient addressed alcohol, cocaine, sedative hypnotic dependence comorbid Schizoaffective disorder. Current Medications: Active Medications Generic Name Dose Route Start Last Admin Trade Name Freq PRN Reason Stop Dose Admin Acetaminophen 650 mg 06/25/17 16:28 07/02/17 21:09 Tylenol - PO 650 mg Q4H PRN Administration FEVER OR PAIN Al Hydroxide/Mg Hydroxide 30 ml 06/25/17 16:28 Mylanta Oral Suspension - PO Q6H PRN DYSPEPSIA Amitriptyline HCl 25 mg 07/04/17 16:58 Elavil - PO TID PRN ANXIETY Buspirone HCl 5 mg 06/26/17 14:00 07/08/17 06:21 Buspar - PO 5 mg TID ANGIE Administration Divalproex Sodium 500 mg 06/25/17 22:00 07/08/17 09:53 Depakote - PO 500 mg BID ANGIE Administration Doxepin HCl 50 mg 06/25/17 22:00 07/07/17 21:10 Sinequan - PO 50 mg HS ANGIE Administration Eucalyptus/Menthol/Phenol/Sorbitol 1 each 06/25/17 16:28 Cepastat Lozenge - MM Q4H PRN SORE THROAT Guaifenesin 10 ml 06/25/17 16:28 Robitussin Dm - PO Q6H PRN COUGH Hydroxyzine Pamoate 50 mg 07/04/17 16:58 07/07/17 21:11 Vistaril - PO 50 mg Q4H PRN Administration ANXIETY Ibuprofen 400 mg 06/25/17 16:28 07/03/17 21:31 Motrin - PO 400 mg Q6H PRN Administration PAIN Loperamide HCl 4 mg 06/25/17 16:28 Imodium - PO Q6H PRN DIARRHEA Magnesium Citrate 300 ml 06/25/17 16:28 Citroma - PO Q48H PRN CONSTIPATION Magnesium Hydroxide 30 ml 06/25/17 16:28 Milk Of Magnesia - PO DAILY PRN CONSTIPATION Nicotine 14 mg 06/25/17 16:28 Nicoderm Patch - TD DAILY PRN WITHDRAWAL(CONT SUBST) Nicotine Polacrilex 4 mg 06/25/17 16:28 Nicorette Gum - BUC Q2H PRN NICOTINE REPLACEMENT RX Multivit/Folic Acid/Iron 1 tab 06/26/17 10:00 07/08/17 09:53 Vitamins ([facility]) - PO 1 tab DAILY ANGIE Administration Pseudoephedrine/Triprolidine 1 combo 06/25/17 16:28 Actifed - PO TID PRN NASAL CONGESTION Risperidone 2 mg 06/25/17 22:00 07/08/17 09:53 Risperdal - PO 2 mg BID ANGIE Administration Thiamine HCl 100 mg 06/25/17 22:00 07/07/17 21:10 Vitamin B1 - PO 100 mg HS ANGIE Administration Current Side Effect: No Lab tests ordered: No Lab tests reviewed: Yes Provider note:: Patient has completed today his treatment and met his goals, will continue to address his issues at [facility] outpatient treatment program. Patient understands the negaive consequences of his addiction and motivated to continue maintain abstinence. Patient was encouraged to utilize all supports available to prevent relapses. Medications Depakote, Doxepin, Buspar and Risperdal well tolerated, scripts provided. Patient is stable for discharge today. Total face to face time:: 25 Mental Status Exam - Mental Status Exam Alert and Oriented to: Time, Place, Person Cognitive Function: Good Patient Appearance: Well Groomed Mood: Hopeful Affect: Appropriate, Mood Congruent Patient Behavior: Appropriate, Cooperative Speech Pattern: Clear, Appropriate Voice Loudness: Normal Thought Process: Intact Thought Disorder: Not Present Hallucinations: Denies Suicidal Ideation: Denies Homicidal Ideation: Denies Insight/Judgement: Fair Sleep: Fair Appetite: Fair Muscle strength/Tone: Normal Gait/Station: Normal Psychiatric Treatment Plan - Problem List (1) Sedative hypnotic or anxiolytic dependence Current Visit: Yes (2) Alcohol dependence Current Visit: Yes (3) Cocaine dependence Current Visit: Yes (4) Nicotine dependence Current Visit: No Qualifiers: Nicotine product type: cigarettes Substance use status: in withdrawal Qualified Code(s): F17.213 - Nicotine dependence, cigarettes, with withdrawal (5) Facial paralysis on left side Current Visit: No (6) Schizoaffective disorder Current Visit: No
== END 2017-07-08 10:40 | disposition home or self-care (01) | DRG 772 ==
LOC: YASAS 13:56 → Y5N 13:58
PROVIDERS: ADMIT Psychiatry & Neurology Psychiatry; ATTEND Psychiatry & Neurology Psychiatry
PROC: HZ42ZZZ Group Counseling for Substance Abuse Treatment, Cognitive-Behavioral (ICD-10-PCS; principal; 2017-06-25)
DX: F13.230 Sedative, hypnotic or anxiolytic dependence with withdrawal, uncomplicated (principal); F10.20 Alcohol dependence, uncomplicated; F14.20 Cocaine dependence, uncomplicated; F17.213 Nicotine dependence, cigarettes, with withdrawal; F25.9 Schizoaffective disorder, unspecified; G51.0 Bell's palsy